=== PATIENT | male | born 1980 | race Caucasian/White ===

== ENCOUNTER 2016-07-30 22:02 | Emergency (ER) | payer BC, OTHER ==
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
[~2016-07-30 22:02] MED LIST: IMITREX PO; MEDROL PO; NO MEDICATIONS; PHENERGAN25 MG PO; [UNRECOGNIZED DRUG - OTHER] PO
== END 2016-07-31 00:28 | disposition home or self-care (01) ==
LOC: CED 22:02
DX: S13.4XXA Sprain of ligaments of cervical spine, initial encounter (principal); S33.5XXA Sprain of ligaments of lumbar spine, initial encounter; S00.93XA Contusion of unspecified part of head, initial encounter; K21.9 Gastro-esophageal reflux disease without esophagitis; F17.200 Nicotine dependence, unspecified, uncomplicated; V49.40XA Driver injured in collision with unspecified motor vehicles in traffic accident, initial encounter; Y92.410 Unspecified street and highway as the place of occurrence of the external cause
CPT/HCPCS: 70450; 71020; 72040; 72100; 99284